=== PATIENT | female | born 1960 | race Hispanic/Latino ===

== ENCOUNTER 2018-02-05 17:30 | Emergency (ER) | payer OTHER ==
[2018-02-05 17:30] VITALS: BMI 30.7
--- NOTE | 2018-02-05 18:14 | ED PDOC ---
HPI: General Adult Time Seen by Provider: 02/05/18 17:38 Chief Complaint (Nursing): Headache Chief Complaint (Provider): chills, dizziness, fever History Per: Patient History/Exam Limitations: no limitations Onset/Duration Of Symptoms: Days Current Symptoms Are (Timing): Still Present Additional Complaint(s): 57 year old female presents to the ED complaining of chills, dizziness, and fever of 38C onset last night. Patient states she took Advil at 9am for relief. Also reports of some dry coughing, little diarrhea, and minimal headache consistent with usual migraines. She denies sputum, nausea, or vomiting. PMD: Garett Juan Past Medical History Reviewed: Historical Data, Nursing Documentation, Vital Signs Vital Signs: Last Vital Signs Temp 98.2 F 02/05/18 23:01 Pulse 86 02/05/18 23:01 Resp 18 02/05/18 23:01 BP 121/62 02/05/18 23:01 Pulse Ox 97 02/05/18 23:01 - Medical History PMH: Gall Bladder Disease, HTN - Surgical History Surgical History: Cholecystectomy - Family History Family History: States: Unknown Family Hx - Home Medications Home Medications: Ambulatory Orders Medication Instructions Recorded Meclizine [Meclizine*] 25 mg PO Q6 PRN #20 tab 02/05/18 - Allergies Allergies/Adverse Reactions: Allergies Allergy/AdvReac Type Severity Reaction Status Date / Time No Known Allergies Allergy Verified 01/20/16 09:21 Review of Systems ROS Statement: Except As Marked, All Systems Reviewed And Found Negative Constitutional: Positive for: Fever, Chills Respiratory: Positive for: Cough (dry). Negative for: Sputum Gastrointestinal: Positive for: Diarrhea. Negative for: Nausea, Vomiting Neurological: Positive for: Headache, Dizziness Physical Exam - Reviewed Nursing Documentation Reviewed: Yes Vital Signs Reviewed: Yes - Physical Exam Appears: Positive for: Well, Non-toxic, No Acute Distress Head Exam: Positive for: ATRAUMATIC, NORMAL INSPECTION, NORMOCEPHALIC Skin: Positive for: Normal Color, Warm, Dry Eye Exam: Positive for: EOMI, Normal appearance, PERRL ENT: Positive for: Normal ENT Inspection, Pharynx Is (clear) Neck: Positive for: Normal, Painless ROM, Supple. Negative for: Decreased ROM Cardiovascular/Chest: Positive for: Regular Rate, Rhythm. Negative for: Murmur Respiratory: Positive for: Normal Breath Sounds. Negative for: Decreased Breath Sounds, Accessory Muscle Use, Respiratory Distress Gastrointestinal/Abdominal: Positive for: Normal Exam, Bowel Sounds, Soft. Negative for: Tenderness, Guarding, Rebound Extremity: Positive for: Normal ROM. Negative for: Tenderness, Pedal Edema, Deformity Neurologic/Psych: Positive for: Alert, Oriented (x3). Negative for: Motor/ Sensory Deficits - Laboratory Results Result Diagrams: 02/05/18 18:15 02/05/18 18:15 - ECG Interpretation Of ECG: ST @ 101, PVCs, nonspecific ST abnormality. O2 Sat by Pulse Oximetry: 99 (RA) Pulse Ox Interpretation: Normal - Radiology X-Ray: Interpreted by Me X-Ray Interpretation: No Acute Disease - Progress ED Course And Treament: Pt feels better, wants to go home. Re-evaluation Time: 22:00 Condition: Improved - Physician Consult Information Physician Contacted: Garett Juan Outcome Of Conversation: Evaluated patient in ED, states can be discharged if results normal. Medical Decision Making Medical Decision Making: Time: 1753 Initial Impression: fever, dizziness, viral syndrome Initial Plan: --VBG Shock Panel --Head w/o Contrast CT --EKG --ED Urine Dipstick --CBC w/ Differential --PTT --Prothrombin Time --Chest Two Views [RAD] --Blood Culture --Glucose, Blood, POC --Influenza A B --Urinalysis --Reevaluation Repeat heart rate: 98bpm Time: 1937 EXAM: CT Head Without Intravenous Contrast EXAM DATE/TIME: 02/05/2018 6:01 PM CLINICAL HISTORY: 57 years old, female; Signs and symptoms; Fever and other: Chills; Additional info: Vertigo TECHNIQUE: Axial computed tomography images of the head/brain without intravenous contrast. All CT scans at this facility use one or more dose reduction techniques, viz.: automated exposure control; ma/kV adjustment per patient size (including targeted exams where dose is matched to indication; i.e. head); or iterative reconstruction technique. Coronal and sagittal reformatted images provided and reviewed. COMPARISON: No relevant prior studies available. FINDINGS: Brain: No intracranial hemorrhage. No evidence of evolved territorial infarct or cerebral edema. No mass effect or midline shift. Ventricles: Unremarkable. No ventriculomegaly. Bones/joints: No acute osseous abnormality. Soft tissues: Multiple partially calcified subcutaneous nodules in the frontal scalp. Sinuses: Mild mucosal thickening of the paranasal sinuses. No air-fluid levels. Visualized paranasal sinuses are clear. Mastoid air cells: Mastoid air cells are well-aerated. IMPRESSION: No acute intracranial findings. Thank you for allowing us to participate in the care of your patient Scribe Attestation: Documented by Arsalan Horn, acting as a scribe for Sumaya Padron MD Provider Scribe Attestation: All medical record entries made by the Scribe were at my direction and personally dictated by me. I have reviewed the chart and agree that the record accurately reflects my personal performance of the history, physical exam, medical decision making, and the department course for this patient. I have also personally directed, reviewed, and agree with the discharge instructions and disposition. Disposition - Clinical Impression Clinical Impression: Vertigo - Disposition Referrals: Josep Abrams [Outside] Garett Juan MD [Staff Provider] - Disposition: Routine/Home Disposition Time: 22:41 Condition: IMPROVED Prescriptions: Meclizine [Meclizine*] 25 mg PO Q6 PRN #20 tab PRN Reason: Dizziness Instructions: Vertigo (a Type of Dizziness) Forms: [employer] (Romanian)
[2018-02-05 18:18] LABS: VENOUS BLOOD GAS BASE EXCESS 1.7 mmol/L (0.0-2.0); VENOUS BLOOD GAS PCO2 27 mmHg (40-60); VENOUS BLOOD GAS PO2 24 mm/Hg (30-55); VENOUS BLOOD PH 7.54 (7.32-7.43)
[2018-02-05 18:30] LABS: BASO % 0.4 % (0.0-2.0); HEMOGLOBIN 12.9 g/dL (12.0-16.0); LYMPH # 1.2 K/uL (1.0-4.3); LYMPH % 11.8 % (20.0-40.0); MEAN CORPUSCULAR HEMOGLOBIN 33.2 pg (27.0-31.0); MEAN CORPUSCULAR HGB CONC 34.9 g/dL (33.0-37.0); MEAN PLATELET VOLUME 7.3 fl (7.2-11.7); MONO # 0.7 K/uL (0.0-0.8); MONO % 6.8 % (0.0-10.0); NEUT # 8.1 K/uL (1.8-7.0); RBC 3.89 Mil/uL (3.80-5.20); RED CELL DISTRIBUTION WIDTH 12.5 % (11.5-14.5)
[2018-02-05 18:35] LABS: INR 1.1 (0.9-1.2); PARTIAL THROMBOPLASTIN TIME 23.8 Seconds (25.6-37.1); PROTHROMBIN TIME 12.3 Seconds (9.8-13.1)
[2018-02-05 18:38] LABS: CALCIUM 8.7 mg/dL (8.4-10.2); GFR AFRICAN-AMERICAN > 60; GFR NON-AFRICAN AMERICAN > 60
[2018-02-05 18:40] LABS: ALB/GLOB RATIO 1.3 (1.0-2.1); ALBUMIN 4.4 g/dL (3.5-5.0); ALT/SGPT 42 U/L (9-52); AST/SGOT 56 U/L (14-36); BLOOD UREA NITROGEN 16 mg/dl (7-17)
[2018-02-05] MEDS ORDERED: Sodium Chloride 0.9% 1,000 ML IV STA ×2 (19:50→19:55)
[2018-02-05 22:10] LABS: VENOUS BLOOD GAS BASE EXCESS -0.7 mmol/L (0.0-2.0); VENOUS BLOOD GAS PCO2 40 mmHg (40-60); VENOUS BLOOD GAS PO2 27 mm/Hg (30-55); VENOUS BLOOD PH 7.39 (7.32-7.43)
[2018-02-05 22:24] VITALS: BP 121/62; RESP 18; TEMP 98.2
[2018-02-05 23:01] VITALS: PULSE 86
--- NOTE | 2018-02-06 07:36 | RAD ---
HISTORY: Fever COMPARISON: Chest radiographs 11/26/2015. TECHNIQUE: Chest PA and lateral FINDINGS: LUNGS: No active infiltrates bilaterally. Diminished inspiratory volume noted. PLEURA: No significant pleural effusion identified. No pneumothorax apparent. CARDIOVASCULAR: Normal. OSSEOUS STRUCTURES: No significant abnormalities. VISUALIZED UPPER ABDOMEN: Normal. OTHER FINDINGS: None. IMPRESSION: No active cardiovascular disease or infiltrates bilaterally. Diminished inspiratory volume noted.
--- NOTE | 2018-02-06 09:13 | CT ---
PROCEDURE: CT HEAD WITHOUT CONTRAST. HISTORY: Vertigo COMPARISON: Noncontrast head CT 12/05/2007. TECHNIQUE: Axial computed tomography images were obtained through the head/brain without intravenous contrast. Radiation dose: Total exam DLP = 763.21 mGy-cm. This CT exam was performed using one or more of the following dose reduction techniques: Automated exposure control, adjustment of the mA and/or kV according to patient size, and/or use of iterative reconstruction technique. FINDINGS: HEMORRHAGE: No intracranial hemorrhage. BRAIN: Stable, normal strickland-white matter differentiation and density are appreciated throughout the cerebrum and cerebellum with the brainstem appearing unremarkable as well. There is no mass effect. There is no suspicious extra-axial fluid collection and the midline brain anatomy appears diffusely unremarkable. VENTRICLES: Unremarkable. No hydrocephalus. CALVARIUM: Bilateral frontal scalp calcified sebaceous cysts or exostoses are seen once again. PARANASAL SINUSES: Unremarkable as visualized. No significant inflammatory changes. MASTOID AIR CELLS: Unremarkable as visualized. No inflammatory changes. OTHER FINDINGS: None. IMPRESSION: Stable unenhanced head CT with no acute intracranial findings by standard CT criteria. Follow-up MRI or CT are available if clinically warranted. Concordant preliminary report from [facility], 02/05/2018. .
--- NOTE | 2018-02-06 11:40 | CARD ---
APPROVED REPORT EKG Measurement Heart [id number] IN [id number] [id number] <Conclusion> Sinus tachycardia with frequent premature ventricular complexes Nonspecific ST abnormality Abnormal ECG
[2018-02-07 13:22] VITALS: O2SAT 99
== END 2018-02-05 23:00 | disposition home or self-care (01) ==
LOC: H.ER 17:30
DX: R42 Dizziness and giddiness (principal); I10 Essential (primary) hypertension
CPT/HCPCS: 70450; 71046; 80053; 82803; 82948; 85025; 85610; 85730; 87040; 87804; 93005; 96360; 96361; 99285; J7030